=== PATIENT | male | born 1960 | race Caucasian/White ===

== ENCOUNTER 2016-12-09 22:22 | Inpatient (IN) | payer MEDICAID, OTHER ==
[~2016-12-09] VITALS: Ht 182.9 cm; Wt 130.4 kg
[~2016-12-09 22:22] MED LIST: ARIP5TAB13 PO; COR40 PO; FLUO40CA12 PO; HYDR1TAB94 PO; METH500T7 PO; MIRT30TA PO; PIRO20CA PO; SUMA6VIA SUBQ; [UNRECOGNIZED DRUG - CODE] PO
[2016-12-09 23:05] VITALS: RESP 24; O2SAT 96
[2016-12-09 23:30] VITALS: BP 154/60; PULSE 80; RESP 20; O2SAT 95
[2016-12-09 23:35] VITALS: PULSE 75
--- NOTE | 2016-12-09 23:44 | PCM.HPMED ---
Subjective Date of Service December 09, 2016 Primary Provider: Admitting Physician: Ranjit Hager MD Primary Care Physician: Kayla Mercedes MD Attending Physician: Ranjit Hager MD Admit Status: Direct Admit, [facility] Telemetry Chief Complaint: Respiratory distress History of Present Illness: Patient is an obese 56-year-old male with history significant for COPD, CAD, hypertension, who was transferred from [facility] for respiratory distress on BiPAP. Patient presented to [facility], operated by [facility] with twitching and shortness of breath. Patient states he had been sick for a few days. Patient endorses cough, congestion, runny nose and sore throat. Associated symptoms of subjective fevers, chills, muscle twitches, intermittent hallucinations and chest pain for the last day. Patient denies abdominal pain, nausea, vomiting, diarrhea. Patient reports he has never been intubated for his COPD, last steroid use was 6 months ago. Patient reports of difficulty starting urination , denies dysuria, urgency, or frequency. In ED at [facility] vitals BP 125/78, she 75, R 22, T 36.5. Labs were within normal limits except for potassium 5.6, glucose 1:30, BU and 48, creatinine 1.7. Troponin 0.07. UA negative. ABG pH 7.21/pO2 76/pCO2 84.7/HCO2 34. CXR showed no acute airspace disease. ABG consistent with respiratory acidosis. Patient started on BiPAP at [facility]. Easing given 1 dose of 125 mg IV methylprednisolone, together with DuoNeb and albuterol nebulizer as needed. Patient was transferred to [facility] due to unavailability of beds at [facility]. Patient also became hypotensive, but was responsive to fluid boluses. PCP: Dr. Ricardo Castorena Review of Systems: A comprehensive review of systems has been conducted with the patient and found to be negative except for what is mentioned in history of present illness. Allergies Coded Allergies: No Known Allergies (Verified Allergy, Mild, 10/04/09) Home Medications Albuterol nebulizer Amlodipine 5 mg by mouth daily Abilify 15 mg by mouth daily Combivent 15232 mics Puff every 4-6 hours when necessary Flexeril 10 mg by mouth 3 times a day Fluoxetine 80 mg by mouth daily furosemide 40 mg by mouth daily Mucinex 1200 mg every 12 hours Brea 10-235 milligrams 1 tab every 4-6 hours when necessary for pain DuoNeb Lisinopril 40 mg by mouth daily Claritin 10 mg by mouth daily MS Contin 60 mg every 6 hours Nadol 40 mg by mouth daily Naproxen sodium 550 mg tablet by mouth twice a day with meals Nicorette 2 mg every 2 hours and for smoking cessation Nitrostat 0.4 mg SL tablet Prednisone 10 mg tablet Qvar 80 mics Serevent Diskus 1 puff every 12 hours Imitrex injection Tamsulosin 0.4 mg PMH Hypertension COPD Emphysema Depression Obesity BPH Angina pectoris Hepatitis C History of migraine headaches Chronic neck and back pain Syncopal episodes Surgical History Left hip fracture Abdominals hernia repair Right wrist and hand fracture surgery Left crush injury wrist and hand Cholecystectomy Family History Father with lung cancer Mother with diabetes and hypertension Social History 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 Hx Alcohol Use: Yes (socially) Hx Substance Use: Yes (edible marijuana) Hx Tobacco Use: Yes Smoking Status: Current Some Day Smoker (smokes 1 cigarette a day) Living Arrangement: with Family (local resident with good support) Exam Vital Signs Vital Sign - Last Date Time Temp Pulse Resp B/P Pulse Ox O2 Delivery O2 Flow Rate FiO2 12/09/16 23:05 66 24 96 30 Exam General: Well-developed and well-nourished, in mild distress on BiPAP, intermittent twitching noted HEENT: Normocephalic atraumatic, sluggish pupils, erythematous conjunctiva, dry mucous membranes Neck: Supple with good range of motion Cardiovascular: Regular rate and rhythm, no murmurs rubs or gallops, radial and dorsal pulses intact Respiratory: Expiratory wheezes, no rhonchi or crackles Abdomen: Obese, soft, nontender, no guarding with normoactive bowel sounds Neuro: Awake Alert oriented, nonfocal, sensation and strength intact throughout Skin: Warm dry and intact, no rash Psych: Mood and affect, normal thought process Lab and Diagnostics Labs Potassium 5.6 CO2 35 Anion gap 1 Glucose 1:30 BUN 48 Creatinine 1.7 GFR 44 Globulin 3.7 Sodium 141 Chloride 105 Protein 7.4 Albumin 3.7 Calcium 8.5 Bilirubin, total 0.4 Alkaline phosphatase 54 ALT 56 AST 29 Creatinine kinase 37 Troponin 10.07 BNP 117 WBC 9.3 RBC 4.68 Hemoglobin 13.9 Hematocrit 45.4 Platelets 148 Neutrophils percent 76.7 Pro-time 9.6 INR 1.0 Lipase 97 Lactate 0.8 ABG pH 7.21 pO2 76 pCO2 84.7 HCO2 34 Microbiology UA negative, BCx pending X-Rays, CTs and MRIs Per records from [facility] Chest x-ray: No acute airspace disease. Interpreted by ED Gilles 12-lead ECG ECG from [facility], operated by [facility] Normal sinus rhythm at rate of 68. Normal axis. No acute ST/T-wave changes. QTC 427 Assessment & Plan Patient is an obese 56-year-old male with history significant for COPD, CAD, hypertension, who was transferred from [facility] for respiratory distress on BiPAP. Patient presented to [facility], operated by [facility] with twitching and shortness of breath. Patient admitted for COPD exacerbation. Acute hypoxic hypercapnic respiratory distress, present on admission. Acute. - Patient afebrile with no leukocytosis. Chest x-ray negative for any cardiopulmonary disease. - Most likely due to COPD exacerbation, unlikely to be of infectious process. - UA negative, Blood cultures pending at [facility] - Urine strep, legionella, viral PCR pending - Procalcitonin pending COPD exacerbation, present on admission. Acute. - On BiPAP - DuoNeb Q4H scheduled - Albuterol nebs Q2H PRN - Solu-Medrol 125 mg IV every 8 hours Acute respiratory acidosis with metabolic alkalosis, present on admission. Acute. - pH 7.21/pCO2 84.7/pO2 76/HCO2 34, BiPAP started - ABG pending Hypotension, present on admission. Resolved. - most likely due to dehydration, patient was given 2 L of NS at [facility] with good response - IVF continued - Continue to monitor BP Acute Kidney injury, present on admission. Acute. - most likely due to dehydration, baseline unknown - IV fluids - BMP in a.m. Elevated troponin, present on admission. - patient not having any chest pain, no concerning findings on ECG, most likely due to above kidney injury - will trend Chronic conditions: Medication reconciliation to be done by day team Hypertension - hold all BP meds Depression Obesity BPH Hepatitis C History of migraine headaches Chronic neck and back pain Nicotine dependence - Smoking cessation discussed Acetaminophen-fever/headache/mild/moderate pain Antiemetics, as needed Bowel regimen, as needed. Patient status: Patient was admitted under inpatient status with expected length of stay greater than two midnights due to severity of presenting symptoms , risk of adverse event, and complexity of treatment plan. Resuscitation Status: CPR: Attempt Resuscitation Attending Statement The patient was seen and examined together with Dr. Novoa on 12/09 and I agree with the history, exam and plan as outlined in the note above. Cristino Novoa DO December 09, 2016 23:44 Ranjit Hager MD December 10, 2016 02:46
[2016-12-09] MEDS ORDERED: Ondansetron 2 mg/mL 2 mL Inj IVPUSH PRN (23:55)
[2016-12-09] MEDS ORDERED: Polyethylene Glycol (PEG) 17 Gm Powder PO PRN (23:55)
[2016-12-09] MEDS ORDERED: Alum-Mag Hydrox-Simeth 30 mL Suspension PO PRN (23:55)
--- NOTE | 2016-12-09 23:56 | NUR ---
Admission Pt admitted from [facility]. He is currently on BIPAP due to complaint of decreased mental status and shortness of breath. The pt is oriented x 3 and answered all the questions for the admission. He c/o back and neck pain that is chronic. He rates his pain at a 4. Lungs are decreased. He has a rare cough. Oriented to room/call light. He has a constant request for water due to a dry mouth (bipap related). He agrees to take sips of water once an hour so as to not interrupt his therapy.
[2016-12-10] VITALS (9 sets, daily range): BP systolic 111–129; BP diastolic 62–79; PULSE 57–76; RESP 18–22; O2SAT 93–98
[2016-12-10] MEDS: 0.9% Sodium Chloride 1,000 ML IV SCH ×2 (00:21→10:00)
[2016-12-10] MEDS: Heparin 5,000 Unit/mL Inj SUBQ SCH ×2 (00:26→08:55)
[2016-12-10] MEDS ORDERED: Albuterol 2.5 mg/3 mL Inhalation Solution NEB PRN (01:00)
--- NOTE | 2016-12-10 02:39 | ABG ---
DateTimeAnalyzed 02:34:00 -_ pH ____7.305 - 7.350 7.450 pCO2 ___62.0__ -mmHg 35.0 45.0 pO2 ___71.3__ -mmHg 69.0 116 HCO3- ___30.0__ -mmol/L 22.0 26.0 ABE ____2.5__ -mmol/L -2.0 2.0 tHb ___13.3__ -g/dL O2Hb ___92.4__ -% COHb ____1.5__ -% MetHb ____1.1__ -% sO2 ___94.9__ -% 25.0 FIO2 ___30.0__ -% CPAP ___18.0__ -cmH2O PEEP ____6.0__ -cmH2O Set_RR ___14.0__ -b/min Drawn By MM - Date/Time Notified____ 02:39:00 -_ Spontaneous_RR ___18.0__ -b/min Oxygen Device 1 ____BIPAP - Notified By MM - Notified Whom DR MINA - B 758 -mmHg tO2 ___17.3__ -Vol% Hi test _Positive -
[2016-12-10 03:41] LABS: BASOPHILS % (AUTO) 0.1 % (0-3); EOSINOPHILS % (AUTO) 0 % (0-5); MONOCYTES % (AUTO) 0.7 % (4-12); Mean Corpuscular Hemoglobin 29.1 pg (27.0-35.0); Mean Corpuscular Volume 96.4 fL (81-100); NEUTROPHILS % (AUTO) 89.3 % (40-74); Platelet Count 141 bil/L (150-400)
[2016-12-10] MEDS: Albuterol-Ipratropium 3 mL Inhalation Solution NEB SCH ×4 (04:45→15:56)
--- NOTE | 2016-12-10 05:15 | NUR ---
Oral care Pt repeatedly complaints of a dry mouth Given sips of water on a hourly basis. Pt understands that his mask should not be pulled off to often
--- NOTE | 2016-12-10 07:08 | NUR ---
Pain The pt was very short with the RN re his meal menu. The stated that "he is in pain." (chronic neck and back pain) The is not certain re the frequency of the pain meds the pt takes at home and whether the morphine tablet is extended release or not. The pt takes vicodin for break thru pain at home. I paged the resident and communicated the pt's request for pain medicine. Will wait for further orders.
[2016-12-10] MEDS ORDERED: HYDR-3740 PO (07:11)
[2016-12-10] MEDS ORDERED: LISI40TA PO (07:35)
[2016-12-10] MEDS ORDERED: ARIP15TA7 PO (07:38)
[2016-12-10] MEDS ORDERED: FLUO40CA PO (07:38)
[2016-12-10] MEDS ORDERED: METH750T3 PO (07:39)
[2016-12-10] MEDS ORDERED: MORP30TA PO (07:41)
[2016-12-10] MEDS ORDERED: NADO80TA PO (07:41)
[2016-12-10] MEDS ORDERED: AMLO5TAB2 PO (07:44)
[2016-12-10] MEDS ORDERED: ALBU18HF INHALATION (07:44)
[2016-12-10] MEDS ORDERED: MethylprednisoLONE Sodium Succinate 62.5 mg/mL 2 mL Inj IVPUSH SCH (08:30)
[2016-12-10] MEDS ORDERED: Morphine ER 30 mg (MS Contin) Tablet PO SCH (10:05)
[2016-12-10] MEDS ORDERED: HYDROcodone-APAP 10-325 mg PO PRN (10:05)
[2016-12-10] MEDS ORDERED: IPRA4AER INHALATION (12:36)
[2016-12-10] MEDS ORDERED: CYCL5TAB PO (12:36)
[2016-12-10] MEDS ORDERED: ALBU2.5V4 NEB (12:36)
[2016-12-10] MEDS ORDERED: FURO40TA4 PO (12:37)
[2016-12-10] MEDS ORDERED: GUAI120016 PO (12:37)
[2016-12-10] MEDS ORDERED: NAPR550T44 PO (12:40)
[2016-12-10] MEDS ORDERED: MORP60TA51 PO (12:40)
[2016-12-10] MEDS ORDERED: LORA10CA PO (12:40)
[2016-12-10] MEDS ORDERED: SALM50DI IH (12:42)
[2016-12-10] MEDS ORDERED: SILV400C TOPICAL (12:44)
[2016-12-10] MEDS ORDERED: NITR0.4T6 SL (12:44)
[2016-12-10] MEDS ORDERED: Sodium Polystyrene Sulfonate 0.25 Gm/mL 500 mL Suspension PO ONE (14:30)
[2016-12-10] MEDS ORDERED: Morphine ER 30 mg (MS Contin) Tablet PO ONE (15:10)
[2016-12-10] MEDS ORDERED: PRE20 PO (15:19)
[2016-12-10] MEDS ORDERED: PRED-508 PO (15:20)
--- NOTE | 2016-12-10 15:28 | PCM.DIMED ---
Discharge Instructions Date of Service December 10, 2016 Dates of Hospitalization December 09, 2016 at 23:01 Discharge Diagnosis Discharge Diagnosis COPD exacerbation; acute respiratory failure with hypoxia and hypercarbia; hyperkalemia; acute kidney injury Medication Instructions Additional med instructions A prescription for 4 more days of prednisone is been transmitted to your pharmacy. Take the first dose tomorrow morning, 2 pills per day until they are done. Continue your other usual COPD lung medications. You should not take any lisinopril or naproxen for 5 days. Maintain good hydration. Contact your primary care doctor to follow-up on your high potassium level before you resume lisinopril. Diet Discharge Diet: No restrictions Activity Discharge Activity: Other (continue your usual home oxygen therapy) Call your provider Call your provider for: Shortness of breath Patient Instructions Follow-up plan Contact Dr. Kell cisse to arrange a follow-up appointment, check your potassium and advise you on your blood pressure medicine. Follow-up Provider: Robert Castorena MD Follow-up with PCP in: 1 week Kye Coello MD December 10, 2016 15:28
--- NOTE | 2016-12-10 15:37 | PCM.DC.MED ---
Discharge Summary Date of Service December 10, 2016 Dates of Hospitalization Date of Hospital Admission December 09, 2016 at 23:01 Date of Discharge: December 10, 2016 Providers: Admitting Physician: Ranjit Hager MD Primary Care Physician: Kayla Mercedes MD Attending Physician: Ranjit Hager MD Diagnosis at Time of Discharge Diagnosis at Time of Discharge COPD exacerbation; acute respiratory failure with hypoxia and hypercarbia; hyperkalemia; acute kidney injury Procedures XRay, CTs & MRIs Per records from [facility] Chest x-ray: No acute airspace disease. Interpreted by ED MRobbinD. ECG 12 Lead ECG from [facility] Normal sinus rhythm at rate of 68. Normal axis. No acute ST/T-wave changes. No peak T-waves. QTC 427 Brief History History of Present Illness (per admission note): Patient is an obese 56-year-old male with history significant for COPD, CAD, hypertension, who was transferred from [facility] for respiratory distress on BiPAP. Patient presented to [facility] with twitching and shortness of breath. Patient states he had been sick for a few days. Patient endorses cough, congestion, runny nose and sore throat. Associated symptoms of subjective fevers, chills, muscle twitches, intermittent hallucinations and chest pain for the last day. Patient denies abdominal pain, nausea, vomiting, diarrhea. Patient reports he has never been intubated for his COPD, last steroid use was 6 months ago. Patient reports of difficulty starting urination , denies dysuria, urgency, or frequency. In ED at [facility] vitals BP 125/78, she 75, R 22, T 36.5. Labs were within normal limits except for potassium 5.6, glucose 1:30, BU and 48, creatinine 1.7. Troponin 0.07. UA negative. ABG pH 7.21/pO2 76/pCO2 84.7/HCO2 34. CXR showed no acute airspace disease. ABG consistent with respiratory acidosis. Patient started on BiPAP at [facility]. Easing given 1 dose of 125 mg IV methylprednisolone, together with DuoNeb and albuterol nebulizer as needed. Patient was transferred to [facility] due to unavailability of beds at [facility]. Patient also became hypotensive, but was responsive to fluid boluses. PCP: Dr. Ricardo Castorena . Hospital Course Acute hypoxic hypercapnic respiratory distress, present on admission. Acute. His wheezing resolved and he returned to his usual 4 L O2 baseline in less than 24 hours at [facility]. No evidence of focal respiratory infection. Discharged on oral prednisone to complete a five-day course. He is to continue his usual pulmonary medications including inhaled glucocorticoid COPD exacerbation, present on admission. Acute. -As above Acute respiratory acidosis with metabolic alkalosis, present on admission. Acute. pH 7.21/pCO2 84.7/pO2 76/HCO2 34, BiPAP started - Resolved Hypotension, present on admission. Resolved. Most likely due to dehydration, patient was given 2 L of NS at [facility] with good response Acute Kidney injury, present on admission. Acute. Admitting [facility] serum creatinine 1.7, subsequently 1.08. - Resolving at time of discharge. Hyperkalemia, present on admission. Acute. No evidence of cardiotoxicity. Likely related to his acute kidney injury with concomitant JESSICA inhibitor and nonsteroidal use. - Kayexalate given - Advised to temporarily hold lisinopril, naproxen. - Advised to maintain good hydration - Advised to follow-up with PCP within one week Elevated troponin, present on admission. -No temporal pattern to suggest coronary ischemia Opioid dependent chronic pain, Chronic neck and back pain. Is difficult to determine his currently prescribed doses of opioids. - Advised to continue his current outpatient regimen at time of discharge. Nicotine dependence - Smoking cessation discussed Chronic conditions: No changes during this hospitalization Hypertension Depression Obesity BPH Hepatitis C History of migraine headaches Exam Vital Signs (Last) Date Time Temp Pulse Resp B/P Pulse Ox O2 Delivery O2 Flow Rate FiO2 12/10/16 12:57 37.1 76 20 129/79 95 Nasal Cannula 4.00 12/10/16 04:45 30 Exam General: Obese gentleman, talkative, no acute distress HEENT: sclerae anicteric, oral mucosa moist Neck: no JVD Chest: clear to auscultation, no wheezing, no rhonchi Cardiac: S1S2, no murmur Abdomen: BS normal, non-tender, protuberant Extremities: No pitting edema Neuro: A&O, cranial nerves symmetric, motor strength 5/5, coordination normal Test 12/10/16 01:37 12/10/16 03:30 12/10/16 09:29 Troponin T 0.010ug/L (0.0-0.011) Procalcitonin 0.05ng/mL (0.00-0.08) White Blood Count 7.2th/mm3 (3.8-10.1) Red Blood Count 4.47mil/mm3 (4.40-5.80) Hemoglobin 13.0g/dL (13.8-17.2) Hematocrit 43.1% (41.0-50.0) Mean Corpuscular Volume 96.4fL (81-100) Mean Corpuscular Hemoglobin 29.1pg (27.0-35.0) Mean Corpuscular Hemoglobin Concent 30.2% (32.0-37.0) Red Cell Distribution Width 13.3% (12.3-15.4) Platelet Count 141bil/L (150-400) Neutrophils (%) (Auto) 89.3% (40-74) Lymphocytes (%) (Auto) 9.6% (14-46) Monocytes (%) (Auto) 0.7% (4-12) Eosinophils (%) (Auto) 0% (0-5) Basophils (%) (Auto) 0.1% (0-3) Sodium Level 141mEq/L (134-144) Chloride Level 100mEq/L (97-108) Carbon Dioxide Level 27mmol/L (18-29) Blood Urea Nitrogen 44mg/dL (6-24) Creatinine 1.08mg/dL (0.76-1.27) Estimat Glomerular Filtration Rate 75mL/min (>59) Glucose Level 142mg/dL (60-99) Calcium Level 8.5mg/dL (8.5-10.1) Total Bilirubin 0.3mg/dL (0.0-1.2) Aspartate Amino Transf (AST/SGOT) 26U/L (0-50) Alanine Aminotransferase (ALT/SGPT) 43U/L (0-44) Alkaline Phosphatase 50U/L (25-150) Total Protein 6.6g/dL (6.4-8.4) Albumin 4.0g/dL (3.4-5.0) Potassium Level 5.8mEq/L (3.5-5.2) Microbiology Results Cultures negative, respiratory viral PCR panel negative. Discharge Medications Discharge Medications Amlodipine (Amlodipine) 5 Mg Tablet 5 MG PO DAILY (Reported) Aripiprazole (Aripiprazole) 15 Mg Tablet 15 MG PO DAILY (Reported) Cyclobenzaprine (Cyclobenzaprine) 5 Mg Tablet 10 MG PO TID (Reported) Fluoxetine (Fluoxetine) 40 Mg Capsule 80 MG PO DAILY (Reported) Furosemide (Furosemide) 40 Mg Tablet 40 MG PO DAILY (Reported) Guaifenesin (Guaifenesin) 1,200 Mg Tab.er.12h 1,200 MG PO BID (Reported) Lisinopril (Lisinopril) 40 Mg Tablet 40 MG PO DAILY (Reported) Loratadine (Claritin) 10 Mg Capsule 10 MG PO DAILY (Reported) Morphine Sulfate ER (Morphine Sulfate ER) 60 Mg Tablet 60 MG PO Q6H (Reported) Nadolol (Nadolol) 80 Mg Tablet 40 MG PO DAILY (Reported) Naproxen Sodium (Naproxen Sodium) 550 Mg Tab 550 MG PO BID (Reported) Prednisone (Deltasone) 20 Mg Tablet 40 MG PO DAILY Prescribed by: TODD ANGELA MD Salmeterol Xinafoate (Serevent Diskus) 50 Mcg/Puff Inhaler 50 MCG IH Q12H ( Reported) Silver Sulfadiazine (Silver Sulfadiazine) 400 Gm Cream..g. 1 APPLIC TOPICAL BID (Reported) As needed Albuterol Neb Soln (Albuterol Neb Soln) 2.5 Mg/3 Ml Vial.neb 10 MG NEB Q6H PRN PRN For Wheezing (Reported) Albuterol Sulfate (Ventolin HFA Inhaler) 200 Puff/18 Gm Inhaler 1-2 PUFFS INHALATION Q4H PRN PRN For Shortness of Breath (Reported) Albuterol/Ipratropium (Combivent Respimat Inhal [place]) 120 Spr/4 Gm Inhaler 1 PUFF INHALATION q4-6h PRN PRN For Shortness of Breath (Reported) Hydrocodone-Acetaminophen 10-325 mg (Hydrocodone-Acetaminophen 10-325 mg) 1 Each Tablet 1 TABLET PO q4-6h PRN PRN For Pain (Reported) Methocarbamol (Methocarbamol) 750 Mg Tablet 750 MG PO TID PRN PRN For Spasm ( Reported) Nitroglycerin SL (Nitroglycerin SL) 0.4 Mg Tab.subl 1 TABLET SL Q5MIN PRN PRN For Chest Pain (Reported) Additional med instructions A prescription for 4 more days of prednisone is been transmitted to your pharmacy. Take the first dose tomorrow morning, 2 pills per day until they are done. Continue your other usual COPD lung medications. You should not take any lisinopril or naproxen for 5 days. Maintain good hydration. Contact your primary care doctor to follow-up on your high potassium level before you resume lisinopril. Followup Plan Follow-up plan Contact Dr. Castorena soon to arrange a follow-up appointment, check your potassium and advise you on your blood pressure medicine. Discharge Diet: No restrictions Discharge Activity: Other (continue your usual home oxygen therapy) Follow-up Provider: Robert Castorena MD Follow-up with PCP in: 1 week Time spent 35 minutes copies to: Robert Castorena MD, Jeffrey W MD December 10, 2016 15:37
--- NOTE | 2016-12-10 16:57 | NUR ---
Resumed analgesic regime per Md with some effect, patient still asking for his home dosing, MD made aware on several occasions. Vital signs stable, afebrile, no c/o shortness of breath, though he appears to have an increased work of breathing and is a bit anxious, intermittently appearing angry. Off bipap to [place] this morning. Sinus rhythm on tele. Up in room indep, assisting with lines/tubing, eating well. Supportive at bedside. States several times this morning that he is "going home today". Discharge instructions discussed for meds and follow-up appointment. Patient states he took his own IVs out when they were not found, refusing dressings or bandaids; instructed to watch for S&S of infection; sites appear dry/no oozing. Discharged to home with via wheelchair to care at 1645.
[2016-12-11] MEDS ORDERED: predniSONE 20 mg Tablet PO SCH (08:30)
== END 2016-12-10 16:45 | disposition home or self-care (01) | DRG 189 ==
LOC: PCC 23:01
PROVIDERS: ADMIT Hospitalist; ATTEND Hospitalist
PROC: 5A09357 Assistance with Respiratory Ventilation, Less than 24 Consecutive Hours, Continuous Positive Airway Pressure (ICD-10-PCS; principal; 2016-12-09)
PROC: 4A033B1 Measurement of Arterial Pressure, Peripheral, Percutaneous Approach (ICD-10-PCS; 2016-12-10)
DX: J96.01 Acute respiratory failure with hypoxia (principal); N17.9 Acute kidney failure, unspecified; F11.20 Opioid dependence, uncomplicated; J44.1 Chronic obstructive pulmonary disease with (acute) exacerbation; E87.5 Hyperkalemia; J96.02 Acute respiratory failure with hypercapnia; I25.10 Atherosclerotic heart disease of native coronary artery without angina pectoris; I10 Essential (primary) hypertension; N40.0 Benign prostatic hyperplasia without lower urinary tract symptoms; F17.210 Nicotine dependence, cigarettes, uncomplicated; G89.29 Other chronic pain; Z79.51 Long term (current) use of inhaled steroids